=== PATIENT | female | born 1995 | race Two or more races ===

== ENCOUNTER 2023-06-08 12:41 | Emergency (ER) | payer OTHER ==
[~2023-06-08] VITALS: Ht 157.5 cm; Wt 59.0 kg
[~2023-06-08 12:41] MED LIST: AZIT250T13 PO; PRED50TA PO
[2023-06-08] MEDS ORDERED: NAPR-1009 PO (13:01)
[2023-06-08 13:15] VITALS: BP 112/65; O2SAT 99
== END 2023-06-08 13:16 | disposition home or self-care (01) ==
LOC: ER 12:41
DX: S83.91XA Sprain of unspecified site of right knee, initial encounter (principal); Z79.2 Long term (current) use of antibiotics; Z79.899 Other long term (current) drug therapy; X58.XXXA Exposure to other specified factors, initial encounter; Y93.89 Activity, other specified; Y92.89 Other specified places as the place of occurrence of the external cause; Y99.8 Other external cause status
CPT/HCPCS: A4663